=== PATIENT | female | born 1950 | race American Indian/Alaskan Native ===

== ENCOUNTER 2017-09-20 11:43 | Outpatient (CLI) | payer MEDICARE ==
--- NOTE | 2017-09-20 12:54 | XRay Report ---
XRAY RIGHT KNEE 4 THREE VIEWS: 09/20/17 CLINICAL: Right knee pain. FINDINGS: Mild osteopenia. No fracture or dislocation. The medial and lateral joint spaces are normal. Small lateral, superior and inferior patellofemoral osteophytes. No joint effusion.Normal soft tissues. IMPRESSION: Patellofemoral osteoarthritis.
== END 2017-09-20 11:44 | disposition home or self-care (01) ==
LOC: SPVIMAG 11:43
PROVIDERS: ATTEND Orthopaedic Surgery
DX: M17.11 Unilateral primary osteoarthritis, right knee (principal); M85.861 Other specified disorders of bone density and structure, right lower leg